=== PATIENT | male | born 1955 | race Two or more races ===

== ENCOUNTER 2018-05-18 08:00 | Inpatient (IN) | payer OTHER ==
[~2018-05-18] VITALS: Ht 188 cm; Wt 128.8 kg
[2018-05-19] MEDS ORDERED: OMEGA 3 1,0001 EACH PO (15:06)
[2018-05-19] MEDS ORDERED: [UNRECOGNIZED DRUG - OTHER] PO (15:06)
[2018-05-19] MEDS ORDERED: PANTOPRAZOLE SO20 MG PO (15:07)
[2018-05-19] MEDS ORDERED: COZAAR100 MG PO (15:07)
[2018-05-19] MEDS ORDERED: ATORVASTATIN CA40 MG PO (15:08)
[2018-05-19] MEDS ORDERED: SYNTHROID50 MCG (15:36)
[2018-05-22] MEDS ORDERED: SYNTH PO (13:14)
[2018-05-25] MEDS ORDERED: CENTRUM ADULTS1 EACH PO (13:40)
[2018-05-25] MEDS ORDERED: SYNTHROID50 MCG PO (13:41)
[2018-05-25] MEDS ORDERED: PERCOCET 5-3251 EACH PO (16:22)
[2018-05-25] MEDS ORDERED: ELIQUIS2.5 MG PO (16:22)
[2018-05-25] MEDS ORDERED: DUI500 PO (16:22)
== END 2018-05-25 21:45 | disposition home or self-care (01) | DRG 470 ==
LOC: SURG 05-23 06:00 → O/R 05-23 06:00 → RECOVERY 05-23 08:00 → SURG 05-23 14:06
PROVIDERS: ADMIT Orthopaedic Surgery
PROC: 0MNP0ZZ Release Left Knee Bursa and Ligament, Open Approach (ICD-10-PCS; 2018-05-23)
PROC: 0SRD0JZ Replacement of Left Knee Joint with Synthetic Substitute, Open Approach (ICD-10-PCS; principal; 2018-05-23 12:30)
DX: M17.12 Unilateral primary osteoarthritis, left knee (principal); D62 Acute posthemorrhagic anemia; I10 Essential (primary) hypertension; E66.09 Other obesity due to excess calories